=== PATIENT | male | born 1960 | race Caucasian/White ===

== ENCOUNTER 2021-09-23 12:54 | Inpatient (IN) ==
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
[2021-09-23] MEDS ORDERED: ONDANSETRON 4 MG/2 ML VIAL IV PRN (15:09)
[2021-09-23] MEDS ORDERED: ONDANSETRON 4 MG/2 ML VIAL ONE (15:40)
[2021-09-23] MEDS: CIPROFLOXACIN 400 MG/200 ML BAG IV SCH (15:42)
[2021-09-23] MEDS: HYDROmorphone 0.5 MG/0.5 ML SYRINGE IV PRN ×3 (15:42→22:57)
[2021-09-23] MEDS: DEXTROSE 5%-LR 1,000 ML IV SCH (17:19)
[2021-09-23] MEDS: metroNIDAZOLE 500 MG in PREMIX 1 BAG IV SCH ×2 (19:07→22:25)
[2021-09-23] MEDS ORDERED: metroNIDAZOLE 500 MG/100 ML BAG IV ONE (19:10)
[2021-09-23] MEDS: 0.9 % SODIUM CHLORIDE 10 ML SYRINGE IV SCH (22:24)
[2021-09-24] MEDS: metroNIDAZOLE 500 MG in PREMIX 1 BAG IV SCH ×4 (03:41→23:14)
[2021-09-24] MEDS ORDERED: metroNIDAZOLE 500 MG/100 ML BAG IV ONE ×2 (03:45→23:10)
[2021-09-24] MEDS: DEXTROSE 5%-LR 1,000 ML IV SCH ×4 (03:45→23:29)
[2021-09-24] MEDS: HYDROmorphone 0.5 MG/0.5 ML SYRINGE IV PRN ×5 (03:51→23:13)
[2021-09-24] MEDS: CIPROFLOXACIN 400 MG/200 ML BAG IV SCH ×2 (03:53→14:52)
[2021-09-24] MEDS: 0.9 % SODIUM CHLORIDE 10 ML SYRINGE IV SCH ×3 (04:58→21:09)
[2021-09-24 06:34] LABS: Hematocrit 36.2 % (40.1-51.0); Hemoglobin 12.4 g/dL (13.7-17.5); Mean Cell Volume 91.4 fL (80.0-100.0); Mean Corpuscular HGB Conc 34.3 g/dL (31.0-36.0); Mean Platelet Volume 9.7 fL (7.4-10.4); Platelet Count 435 K/mcL (140-440); RBC 3.96 M/mcL (4.63-6.08); WBC 7.6 K/mcL (4.5-11.0)
[2021-09-24 07:09] LABS: Blood Urea Nitrogen 4 mg/dL (6-20); Calcium 8.4 mg/dL (8.6-10.4); Carbon Dioxide 27 mmol/L (22-30); Chloride 99 mmol/L (96-108); Glomerular Filtration Rate 103; Glucose 104 mg/dL (70-105)
--- NOTE | 2021-09-24 09:21 | General Surgery Progress Note ---
SUBJECTIVE Subjective Patient information: Note initiated : 09/24/21 at 9:18 am Service Date, if different from initiated Date: [] Patient: Lars Trejo 61 y/o M admitted on 09/23/[address] phelan sent him, Diverticulitus. Chief Complaint: [] Doing better this am. Remains tender but feels improved overall. Having some bowel function Principal diagnosis: Acute Sigmoid Diverticulitis Constitutional Vitals: Vital Signs Temp Pulse Resp BP Pulse Ox 97.8 F 71 20 125/82 97 09/24/21 07:19 09/24/21 07:19 09/24/21 07:19 09/24/21 07:19 09/24/21 07:19 Period Temp Pulse Resp BP Sys/Rader Pulse Ox Last 24 Hr 96.9 F-98.5 F 54-83 14-20 116-151/77-100 92-98 Intake and Output 09/23/21 09/24/21 09/24/21 21:59 05:59 13:59 Intake Total 1100 1475 Output Total 600 1600 300 Balance 500 -125 -300 Weight 173 lb 12.8 oz Intake & Output: Intake & Output 09/23/21 09/24/21 09/24/21 21:59 05:59 13:59 Intake Total 1100 1475 Output Total 600 1600 300 Balance 500 -125 -300 Weight 173 lb 12.8 oz Intake: IV 300 1300 Dextrose 5%-Lactated Ringers 1, 1000 000 ml @ 100 mls/hr IV .Q10H [facility] Rx#:[id number] FLAGYL 500 mg In 100 ml @ 0 mls 100 /hr IV .[facility] Rx#: [id number] Flagyl 500 mg In Premix 1 Bag @ 100 100 mls/hr IV Q8H [facility] Rx#: [id number] Oral 800 175 Output: Void Amount 600 1600 300 Other: Meal Dinner Jello Percent of Meal Consumed 100% 100% Feeding Ability Independent Independent Urine Appearance Clear Clear Urine Color Pale Bright Yellow Straw Urine Odor Normal # Voids 2 Exam: Looks well, non toxic, conversant Respiratory Additional comments: normal respiratory effort without distress Cardiovascular Cardiovascular exam: Present RRR GI/Abdominal Additional comments: soft and non distended, mild LLQ and Suprapubic tenderness remain Extremities Exam Additional comments: well perfused A/P Assessment and plan (1) Sigmoid diverticulitis: Assessment and plan: Acute Sigmoid Diverticulitis that seems to be resolving Continue current mgmt Increase activity today and continue with clear liquids only for now Re check lab work in AM Status: Acute Time Spent With Patient Time: Total time spent is greater than 50% in coordination of care (as documented) at patient's floor/unit and/or counseling patient:
[2021-09-25] MEDS: CIPROFLOXACIN 400 MG/200 ML BAG IV SCH (03:33)
[2021-09-25] MEDS: DEXTROSE 5%-LR 1,000 ML IV SCH ×2 (03:34→13:08)
[2021-09-25] MEDS: 0.9 % SODIUM CHLORIDE 10 ML SYRINGE IV SCH ×2 (05:28→16:36)
[2021-09-25 06:05] LABS: Hematocrit 37.7 % (40.1-51.0); Hemoglobin 12.9 g/dL (13.7-17.5); Mean Corpuscular HGB Conc 34.2 g/dL (31.0-36.0); Mean Platelet Volume 9.5 fL (7.4-10.4); Platelet Count 512 K/mcL (140-440); Red Cell Distribution Width 14.1 % (11.5-14.5); WBC 8.9 K/mcL (4.5-11.0)
[2021-09-25 06:41] LABS: Blood Urea Nitrogen 3 mg/dL (6-20); Calcium 8.8 mg/dL (8.6-10.4); Carbon Dioxide 28 mmol/L (22-30); Chloride 101 mmol/L (96-108); Glomerular Filtration Rate 103; Glucose 109 mg/dL (70-105)
[2021-09-25] MEDS ORDERED: metroNIDAZOLE 0 MG/0 ML BAG IV ONE ×2 (08:37→09:08)
[2021-09-25] MEDS ORDERED: LOSARTAN 50 MG TABLET PO SCH (09:00)
[2021-09-25] MEDS: metroNIDAZOLE 500 MG in PREMIX 1 BAG IV SCH ×2 (09:59→13:09)
[2021-09-25] MEDS ORDERED: metroNIDAZOLE 500 MG TABLET PO SCH (14:00)
[2021-09-25] MEDS ORDERED: CIPROFLOXACIN 500 MG TABLET PO SCH (21:00)
--- NOTE | 2021-09-26 13:21 | General Surgery Progress Note ---
SUBJECTIVE Subjective Patient information: Note initiated : 09/25/21 at 645am Service Date, if different from initiated Date: [] Patient: Lars Trejo 61 y/o M admitted on 09/23/[address] phelan sent him, Diverticulitus. Chief Complaint: [] Doing much better overall, hoping to start diet and go home today Principal diagnosis: Acute Sigmoid Diverticulitis Constitutional Vitals: Vital Signs Temp Pulse Resp BP Pulse Ox 98.9 F 75 20 145/86 96 09/25/21 16:00 09/25/21 16:00 09/25/21 16:00 09/25/21 16:00 09/25/21 16:00 Period Temp Pulse Resp BP Sys/Rader Pulse Ox Last 24 Hr 98.9 F 75 20 145/86 96 Intake and Output 09/25/21 09/26/21 09/26/21 21:59 05:59 13:59 Intake Total 440 Balance 440 Intake & Output: Intake & Output 09/25/21 09/26/21 09/26/21 21:59 05:59 13:59 Intake Total 440 Balance 440 Intake: Oral 440 Other: Meal Lunch Percent of Meal Consumed 50% Feeding Ability Independent Exam: Looks well, NAD Respiratory Additional comments: normal respiratory effort Cardiovascular Additional comments: RRR GI/Abdominal Additional comments: belly soft and minimally tender in lower abdomen Extremities Exam Additional comments: appear well perfused A/P Assessment and plan (1) Sigmoid diverticulitis: Assessment and plan: HD#3 Acute Sigmoid Diverticulitis clinically resolving Start Diet Saline Lock IVF Home on oral ABs later on today with clinic follow up Status: Acute Time Spent With Patient Time: Total time spent is greater than 50% in coordination of care (as documented) at patient's floor/unit and/or counseling patient:
== END 2021-09-25 17:01 | disposition home or self-care (01) | DRG 392 ==
LOC: ED 12:54 → MEDSUR 16:42
PROVIDERS: ADMIT Surgery Surgical Critical Care; ATTEND Surgery Surgical Critical Care